=== PATIENT | male | born 1965 | race Caucasian/White ===

== ENCOUNTER → 2020-08-09 13:46 | Outpatient (CLI) | payer OTHER, SELFPAY ==
--- NOTE | 2020-08-09 | DI.MRI.S_ITS ---
PROCEDURE: MR LUMBAR SPINE WO CON INDICATIONS: SPONDYLOLISTHESIS, LUMBAR AREA TECHNIQUE: Noncontrast sagittal T1 spin echo and T2 fast echo, sagittal STIR, axial T1 and T2 fast spin echo through the lumbar spine. In cases with scoliosis, additional coronal T2 fast spin echo may be performed. COMPARISON: None. FINDINGS: Image quality: Excellent. Alignment and Curvature: There is trace anterolisthesis of L3 on L4, trace retrolisthesis of L4 on L5 and grade 1 anterolisthesis of L5 on S1 measuring approximately 8 mm. Pars defect is present at this level. There is minimal leftward curvature of the lumbar spine with apex at L4. Bone Marrow: Marrow is of normal overall signal. No acute vertebral body compression fractures. Spinal Cord: Conus medullaris terminates at the T12 level. Visualized cord demonstrates normal signal and size. Paraspinous Soft Tissues: No paravertebral masses. Partially visualized. Discs: [id number] desiccation is present throughout the lumbar spine severe at L5-S1. L1-L2: No disc bulge, spinal stenosis or foraminal narrowing. Minimal epidural lipomatosis as well as facet/ligamentum flavum arthropathy. L2-L3: Minimal disc bulge without spinal stenosis. Minimal left foraminal narrowing. Minimal epidural lipomatosis as well as [id number] facet and ligamentum flavum hypertrophy. L3-L4: Mild disc bulge with moderate spinal stenosis. Mild left foraminal narrowing with facet and ligamentum flavum hypertrophy. L4-L5: Mild disc bulge without spinal stenosis. Moderate to severe left and [id number] right foraminal narrowing with facet and ligamentum flavum hypertrophy. L5-S1: Mild disc bulge without spinal stenosis. There is severe left and moderate right foraminal narrowing with facet hypertrophy. There is flattening of the left exiting L5 nerve roots. IMPRESSION: 1. Grade 1 anterolisthesis of L5 on S1 with pars defect at L5. There is severe foraminal narrowing with compression of the exiting L5 nerve roots. 2. Ill-defined areas of hyperintensity within the left kidney, not well characterized secondary to motion. While these could represent areas of cysts, further evaluation with ultrasound is recommended. 3. Multilevel spinal stenosis most severe at L3-4 secondary to disc bulge with contributing affective facet/ligamentum flavum arthropathy as well as epidural lipomatosis. Dictated by: Juliet Jay M.D. on 08/09/2020 at 15:48 Approved by: Juliet Jay M.D. on 08/09/2020 at 15:54
== END ==
PROVIDERS: PCP Internal Medicine; Referring Provider Physical Medicine & Rehabilitation Pain Medicine; Visit Provider Physical Medicine & Rehabilitation Pain Medicine
DX: M43.17 Spondylolisthesis, lumbosacral region (principal); M48.061 Spinal stenosis, lumbar region without neurogenic claudication; M48.07 Spinal stenosis, lumbosacral region; M51.26 Other intervertebral disc displacement, lumbar region
CPT/HCPCS: 72148